=== PATIENT | male | born 1965 | race Caucasian/White ===

== ENCOUNTER 2017-09-07 02:04 | Emergency (ER) | payer SELFPAY ==
[~2017-09-07] VITALS: Ht 182.9 cm; Wt 72.6 kg
[2017-09-07 02:04] VITALS: BP 122/75
--- NOTE | 2017-09-07 02:04 | NUR ---
51/M BIBA. PER [facility], PT FLAGGED DOWN EMS, PT C/O FEELING OF FAINTING EPISODES, X1 HOUR, BS 153, EKG NSR. NO TRAUMA, NO LOC. PT STATED HE WAS "WALKING AND WOULD SIT DOWN AND FEEL FAINT." HX SCHIZOPHRENIA, TB (1994). NKA. PT DENIES HEARING VOICES OR SI/HI. VSS; PATIENT POSITIONED FOR COMFORT; HOB ELEVATED; BEDRAILS UP X2; BED DOWN.
--- NOTE | 2017-09-07 02:04 | NUR ---
Patient BIBA BLS, transferred to bed 9. RN evaluating patient at bedside.
[2017-09-07 02:55] LABS: CARBON DIOXIDE 25.2 mmol/L (21-32); POTASSIUM 4.2 mmol/L (3.5-5.1)
[2017-09-07 03:10] LABS: BARBITURATE, URINE NEG. ng/ml (NEG <=200); BENZODIAZEPINE, URINE NEG. ng/mL (NEG <=200); CANNABINOID, URINE NEG. ng/mL (NEG <=50); COCAINE, URINE NEG. ng/mL (NEG <=300); OPIATE, URINE NEG. ng/mL (NEG <=2000); PHENCYCLIDINE SCREEN,URINE NEG. ng/mL (NEG <=25)
[2017-09-07] MEDS ORDERED: NACL 0.9% 2,000 ML IV ONE (03:25)
[2017-09-07 03:46] VITALS: BP 122/76
--- NOTE | 2017-09-07 03:47 | NUR ---
PT SLEEPING COMFORTABLY IN BED, RR EVEN AND UNLABORED. IVF INFUSING WELL. ALL NEEDS MET AT THIS TIME.
== END 2017-09-07 04:30 | disposition home or self-care (01) ==
LOC: MED 02:04 → EDBD 02:04 → MED 04:30
DX: E86.0 Dehydration (principal)
CPT/HCPCS: 36415; 71045; 80048; 80305; 84484; 93005; 96360; 99285; J7030; Q0092

== ENCOUNTER 2017-10-30 02:14 | Emergency (ER) | payer MEDICAID ==
[~2017-10-30] VITALS: Ht 182.9 cm; Wt 72.6 kg
[2017-10-30 02:24] VITALS: BP 128/81
[2017-10-30 02:50] VITALS: BP 128/81
== END 2017-10-30 02:50 | disposition home or self-care (01) ==
LOC: MED 02:14
DX: B35.1 Tinea unguium (principal)
CPT/HCPCS: 99281; 99283

== ENCOUNTER 2017-11-07 02:16 | Emergency (ER) | payer MEDICAID ==
[~2017-11-07] VITALS: Ht 182.9 cm; Wt 72.6 kg
[2017-11-07 02:16] VITALS: BP 81/41
[2017-11-07] MEDS: ACETAMINOPHEN EXTRA STRENGTH 500 MG TAB PO ONE (05:27)
[2017-11-07 06:19] VITALS: BP 95/68
== END 2017-11-07 06:19 | disposition home or self-care (01) ==
LOC: MED 02:16
DX: R07.89 Other chest pain (principal)
CPT/HCPCS: 99283

== ENCOUNTER 2017-11-21 02:06 | Emergency (ER) | payer MEDICAID ==
[~2017-11-21] VITALS: Ht 182.9 cm; Wt 68.0 kg
[2017-11-21 02:10] VITALS: BP 120/70
--- NOTE | 2017-11-21 02:10 | NUR ---
to bed # 12 ambulatory, report given to [place] Rn
--- NOTE | 2017-11-21 02:18 | NUR ---
PATIENT PRESENTS TO ED WITH C/O NECK PAIN X 2 DAYS PT AAOX4 WITH EVEN AND STEADY GAIT; LUNGS CLEAR BL; HR EVEN AND REGULAR; PATIENT STATES PAIN OF 4/10 AT THIS TIME; VSS; PATIENT POSITIONED FOR COMFORT; HOB ELEVATED; BEDRAILS UP X2; BED DOWN. ER MD MADE AWARE OF PT STATUS.
[2017-11-21] MEDS ORDERED: KETOROLAC 30 MG/ML VIAL IM ONE (03:00)
[2017-11-21 03:15] VITALS: BP 119/82
== END 2017-11-21 03:15 | disposition home or self-care (01) ==
LOC: MED 02:06
DX: G89.29 Other chronic pain (principal); M54.2 Cervicalgia
CPT/HCPCS: 70360; 96372; 99284; J1885

== ENCOUNTER 2017-12-25 01:15 | Emergency (ER) | payer MEDICAID ==
[~2017-12-25] VITALS: Ht 182.9 cm; Wt 72.6 kg
[2017-12-25 01:17] VITALS: BP 115/85
--- NOTE | 2017-12-25 01:27 | NUR ---
Patient ambulated to bed 11. RN evaluating patient at bedside.
--- NOTE | 2017-12-25 01:30 | NUR ---
PT presented ER with c/o neck pain x 1 day. SKIN IS PINK/WARM/DRY; AAOX4 WITH EVEN AND STEADY GAIT; PATIENT STATES PAIN OF 7/10 AT THIS TIME; VSS; PATIENT POSITIONED FOR COMFORT; HOB ELEVATED; BEDRAILS UP X2; BED DOWN. ER MD MADE AWARE OF PT STATUS.
[2017-12-25] MEDS ORDERED: KETOROLAC 60 MG/2 ML VIAL IM ONE (02:20)
--- NOTE | 2017-12-25 02:38 | NUR ---
BACK FROM X RAY, AMBULATED TO BATHROOM INDEPENDENTLY. TOLERATED WELL.
[2017-12-25 03:52] VITALS: BP 115/85
--- NOTE | 2017-12-25 03:52 | NUR ---
Patient discharged with v/s stable. Written and verbal after care instructions given and explained. Patient alert, oriented and verbalized understanding of instructions. Ambulatory with steady gait. All questions addressed prior to discharge. ID band removed. Patient advised to follow up with PMD. Rx of MOTRIN was given. Patient educated on indication of medication including possible reaction and side effects. Opportunity to ask questions provided and answered.
== END 2017-12-25 03:52 | disposition home or self-care (01) ==
LOC: MED 01:15
DX: G89.29 Other chronic pain (principal); M54.2 Cervicalgia; F20.0 Paranoid schizophrenia
CPT/HCPCS: 72040; 96372; 99284; J1885

== ENCOUNTER 2018-02-05 16:45 | Emergency (ER) | payer MEDICAID, OTHER ==
[~2018-02-05] VITALS: Ht 182.9 cm; Wt 72.6 kg
[2018-02-05 16:55] VITALS: BP 130/79
[2018-02-05] MEDS ORDERED: KETOROLAC 60 MG/2 ML VIAL IM ONE (19:40)
[2018-02-05 20:20] VITALS: BP 128/74
== END 2018-02-05 20:20 | disposition home or self-care (01) ==
LOC: MED 16:45
DX: R10.13 Epigastric pain (principal); R11.2 Nausea with vomiting, unspecified; F41.9 Anxiety disorder, unspecified; F32.9 Major depressive disorder, single episode, unspecified
CPT/HCPCS: 96372; 99283; J1885

== ENCOUNTER 2018-03-05 04:29 | Emergency (ER) | payer OTHER ==
[~2018-03-05] VITALS: Ht 182.9 cm; Wt 72.6 kg
[2018-03-05 04:42] VITALS: BP 140/90
--- NOTE | 2018-03-05 04:50 | NUR ---
PT BIB SELF C/O LEFT SHOULDER PAIN S/P TC 2 YEARS AGO , AND LEFT FOOT PAIN FOR PAST "3-4 MONTHS". +CMS, NO INJURY NOTED TO AFFECTED AREA . PT IS ABLE TO MOVE LEFT SHOULDER AND ARM. NO INJURY NOTED TO FOOT, BLISTERS NOTED. 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 PMH SCHIZOPHRENIA, BIPOLAR.
--- NOTE | 2018-03-05 06:06 | NUR ---
Dr. Bales evaluating patient at bedside.
--- NOTE | 2018-03-05 06:10 | NUR ---
Patient discharged with v/s stable. Written and verbal after care instructions given and explained. Patient verbalized understanding. Ambulatory with steady gait. All questions addressed prior to discharge. Advised to follow up with PMD.
[2018-03-05 06:11] VITALS: BP 134/67
== END 2018-03-05 06:10 | disposition home or self-care (01) ==
LOC: MED 04:29
DX: Z00.01 Encounter for general adult medical examination with abnormal findings (principal); M79.672 Pain in left foot
CPT/HCPCS: 99281

== ENCOUNTER 2018-03-10 07:14 | Emergency (ER) | payer OTHER ==
[~2018-03-10] VITALS: Ht 182.9 cm; Wt 72.6 kg
[2018-03-10 07:19] VITALS: BP_SYST 97; BP_DIAS 75; BP_DIAS 95
--- NOTE | 2018-03-10 07:28 | NUR ---
52M BIB SELF FOR MEDICATION REFILL FOR "SPINE" PAIN. PT STATES HE TAKES [place] #5 FOR THE PAIN. PT IS AOX4 TO PERSON, PLACE, SITUATION, AND TIME. RR ARE EVEN AND UNLABORED. ABD SOFT AND NON TENDER. AWAITING ER MD PINZON. DOMINICK. ALL NEEDS MET AT THIS TIME. WILL CONTINUE TO MONITOR.
[2018-03-10] MEDS ORDERED: KETOROLAC 60 MG/2 ML VIAL IM ONE (07:35)
[2018-03-10 08:00] VITALS: BP 113/74
--- NOTE | 2018-03-10 08:00 | NUR ---
Patient discharged with v/s stable. Written and verbal after care instructions given and explained. Patient alert, oriented and verbalized understanding of instructions. Ambulatory with steady gait. All questions addressed prior to discharge. ID band removed. Patient advised to follow up with PMD. Rx of [place] #5 and Motrin 800mg given. Patient educated on indication of medication including possible reaction and side effects. Opportunity to ask questions provided and answered.
== END 2018-03-10 08:00 | disposition home or self-care (01) ==
LOC: MED 07:14
DX: S13.4XXA Sprain of ligaments of cervical spine, initial encounter (principal); F17.200 Nicotine dependence, unspecified, uncomplicated; X58.XXXA Exposure to other specified factors, initial encounter; Y93.89 Activity, other specified; Y92.89 Other specified places as the place of occurrence of the external cause; Y99.8 Other external cause status
CPT/HCPCS: 96372; 99283; J1885

== ENCOUNTER 2018-03-12 22:31 | Emergency (ER) | payer OTHER ==
[~2018-03-12] VITALS: Ht 182.9 cm; Wt 74.8 kg
[2018-03-12 22:34] VITALS: BP 108/85
--- NOTE | 2018-03-12 22:34 | NUR ---
TO BED # 11 AMBULATORY, REPORT GIVEN TO LIANA CANTU
--- NOTE | 2018-03-12 22:45 | NUR ---
52 YO M BIB SELF. C/O 10/10 BILATERAL FOOT PAIN. AMBULATORY W/STEADY GATE. PEDAL PULSES EQUEAL BILATERALLY; NON-BOUNDING. LEG STRENGTH EQUAL BILATERALLY. NO REDNESS, EDEMA OR PITTING NOTED. ER MD AT BEDSIDE FOR EVAL. BED IN LOWER LOCKED POSITION; BEDRAILS UP X1. WILL CONTINUE TO MONITOR.
--- NOTE | 2018-03-12 22:50 | NUR ---
X-RAY AT BEDSIDE.
--- NOTE | 2018-03-12 23:20 | NUR ---
Patient discharged with v/s stable. Written and verbal after care instructions given and explained. Patient alert, oriented and verbalized understanding of instructions. Ambulatory with steady gait. All questions addressed prior to discharge. ID band removed. Patient advised to follow up with PMD. Rx of Naproxen and Permethrin given. Patient educated on indication of medication including possible reaction and side effects. Opportunity to ask questions provided and answered.
[2018-03-12 23:24] VITALS: BP 110/80
== END 2018-03-12 23:20 | disposition home or self-care (01) ==
LOC: MED 22:31
DX: M79.671 Pain in right foot (principal); M79.672 Pain in left foot; F17.210 Nicotine dependence, cigarettes, uncomplicated
CPT/HCPCS: 73620; 99283; Q0092